=== PATIENT | male | born 1960 | race Caucasian/White ===

== ENCOUNTER 2017-01-11 15:16 | Emergency (ER) | payer OTHER ==
[~2017-01-11] VITALS: Ht 167.6 cm; Wt 83.9 kg
--- NOTE | 2017-01-11 16:28 | ED HEAD/FACIAL INJ COMPLAINT ---
History of Present Illness General Chief Complaint: Laceration Procedure Stated Complaint: LAC ABOVE RIGHT EYE Source: patient Exam Limitations: no limitations Vital Signs & Intake/Output Vital Signs & Intake/Output Vital Signs Date Time Temp Pulse Resp B/P B/P Pulse O2 O2 Flow FiO2 Mean Ox Delivery Rate 01/11 1638 98.3 84 18 124/74 100 Room Air 01/11 1543 99 Room Air 01/11 1518 97.3 88 15 143/78 93 Room Air Room Air Allergies Coded Allergies: No Known Allergies (01/11/17) Triage Note: PT TO ED FOR LAC TO R EYEBROW. +BRUISING, APPROX 1-1.5 INCH LAC. DENIES CHANGE IN VISION. BLEEDING CONTROLLED IN TRIAGE. Triage Nurses Notes Reviewed? yes Onset: Abrupt (2 hours ago) Severity: mild, moderate Severity Numbers: 4 Location: rt eye brow Method of Injury: direct blow (walked into door) Loss of Consciousness: no loss of consciousness HPI: 56-year-old male with no past medical history presents with a laceration above his right eye. Patient reports he accidentally walked into a door that caused his glasses to hit into his right eyebrow. Pain is located in the area of the laceration and does not radiate. He rates it as a 4 out of 10. Onset was acute quality was severe as required patient to go the emergency department. He denies any loss of consciousness, headache, vomiting, changes in vision or pain with eye movement. He is not up-to-date on tetanus. (ALYSSIA HURTADO PA-C) Past History Travel History Traveled to [place] past 21 day No Medical History Any Pertinent Medical History? 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 No (ALYSSIA HURTADO PA-C) Review of Systems Review of Systems Constitutional: Reports: no symptoms. EENTM: Reports: no symptoms. Respiratory: Reports: no symptoms. Cardiovascular: Reports: no symptoms. GI: Reports: no symptoms. Genitourinary: Reports: no symptoms. Musculoskeletal: Reports: no symptoms. Skin: Reports: see HPI. Neurological/Psychological: Reports: no symptoms. Hematologic/Endocrine: Reports: no symptoms. Immunologic/Allergic: Reports: no symptoms. All Other Systems: Reviewed and Negative (GENESIS ODDSON,ALYSSIA) Physical Exam Physical Exam General Appearance: well developed/nourished, no apparent distress, alert, awake Head: ecchymosis, lacerations, swelling, tenderness, 1.5 cm linear laceration loctaed in the rt eye brow. SC tissuse is exposed. there is associated swelling and bruising. Eyes: Bilateral: normal appearance, PERRL, EOMI. Ears, Nose, Throat: normal pharynx, normal ENT inspection, hearing grossly normal Neck: normal inspection, supple, full range of motion, no midline tenderness Respiratory: normal breath sounds, chest non-tender, no respiratory distress, lungs clear Cardiovascular: regular rate/rhythm Gastrointestinal: normal bowel sounds, soft, non-tender Back: normal inspection, normal range of motion Extremities: normal inspection, normal capillary refill, normal range of motion, no edema Psychiatric: awake, alert, oriented x 3 Cranial Nerves: normal hearing, normal speech, PERRL, abnormal eye position, abnormal pupil position Coordination/Gait: normal finger to nose, normal gait Motor/Sensory: no motor/sensory deficits Skin: normal color, warm/dry Lymphatic: no anterior cervical vidal Diagram Head: 1) 1.5cm linear laceration. there is sournding soft tissue swelling and bruising. ON melvi tenderness of the marita-orbital area. (GENESIS DODSON,ALYSSIA) Progress Differential Diagnosis: corneal abrasion, facial fracture, globe injury, orbit fracture, skull fracture, laceration, contusion Plan of Care: Current Medications Sig/Osvaldo Start time Last Medication Dose Stop Time Status Admin Tetanus/Diphtheria 0.5 ML ONCE ONE 01/11 1630 UNVr Toxoids Adsorbed 01/11 1631 ([facility]) Consent obtained.Wound was irrigated with sterile saline Betadine prep. 4 mL 1% lidocaine without epinephrine were administered for local pain control. 3 5-0 nylon simple interrupted sutures were applied to approximate the wound. Sterile dressing applied patient tolerated well. Tetanus updated. No suspicion for fracture or any eye injury. Patient will be discharged home and will follow up with his primary care doctor return emerged [place] as needed. Sutures will be removed in 5-7 days. (ALYSSIA HURTADO PA-C) Departure Departure Disposition: HOME OR SELF CARE Condition: Stable Clinical Impression Primary Impression: Laceration Secondary Impressions: Contusion Referrals: ISIS REGALADO,JANA Lawson (PCP/Family) Additional Instructions: Keep area clean and dry. Change dressing and apply bacitracin once daily for the next 3 or 4 days. Then leave the area open to the air. Use Tylenol or ibuprofen as needed for pain. Return to emergency department or follow-up with primary care doctor to have sutures removed in 5-7 days. Departure Forms: Customer Survey General Discharge Information (ALYSSIA HURTADO PA-C) PA/FIELD SALES EXECUTIVE Co-Sign Statement Statement: ED Attending supervision documentation- I saw and evaluated the patient. I have also reviewed all the pertinent lab results and diagnostic results. I agree with the findings and the plan of care as documented in the PA's/FIELD SALES EXECUTIVE's documentation. x I have reviewed the ED Record and agree with the PA's/FIELD SALES EXECUTIVE's documentation. [] Additions or exceptions (if any) to the PAs/FIELD SALES EXECUTIVE's note and plan are summarized below: [] (CHRISTIANO REGALADO,JAIR) Procedures Laceration/Wound Repair Laceration/Wound Repair: Wound Location: face (rt eye brow) Wound's Depth, Shape: linear, subcutaneous Wound Length (cm): 1.5 Wound Explored: clean, no foreign body removed Irrigated w/ Saline (ccs): 100 Betadine Prep? Yes Anesthesia: 1% lidocaine Volume Anesthetic (ccs): 4 Wound Debrided: minimal Wound Repaired With: sutures Suture Size/Type: 5:0 Number of Sutures: 3 Layer Closure? No Sterile Dressing Applied: Yes Splint Applied? No Tetanus Status: not up to date Progress: Consent obtained.Wound was irrigated with sterile saline Betadine prep. 4 mL 1% lidocaine without epinephrine were administered for local pain control. 3 5-0 nylon simple interrupted sutures were applied to approximate the wound. Sterile dressing applied patient tolerated well (ALYSSIA HURTADO PA-C)
[2017-01-11 16:38] VITALS: BP 124/74
== END 2017-01-11 16:39 ==
LOC: ERH 15:16
DX: S01.111A Laceration without foreign body of right eyelid and periocular area, initial encounter (principal); S00.83XA Contusion of other part of head, initial encounter; W22.8XXA Striking against or struck by other objects, initial encounter
CPT/HCPCS: 90471; 90714